=== PATIENT | female | born 1960 | race Caucasian/White ===

== ENCOUNTER 2016-08-07 12:33 | Inpatient (IN) | payer OTHER ==
[~2016-08-07] VITALS: Ht 154.9 cm; Wt 58.0 kg
[~2016-08-07 12:33] MED LIST: ADVAIR HFA120 INHALA IH; CEFDINIR300 MG PO; METHADONE10 MG/1 M1 PO; NICODERM CQ1 EAC1 TD; NICOTINE PATCH1 EAC2 TD; NORVIR100 MG PO; PREDNISONE10 MG PO; PROAIR HFA8.5 GM IH; REYATAZ300 MG PO; SPIRIVA1 INHALATI IH; TRUVADA1 TABLET PO; ZITHROMAX Z-PA250 MG PO
[2016-08-07 14:02] LABS: MCH 30.4 PG (29.0-34.0); MCHC 33.1 G/DL (30.0-36.0); MCV 92.1 FL (83-99); MEAN PLAT.VOLUME 9.9 uM^3 (9.5-12.4); PLATELET COUNT 112 K/uL (156-360); RBC DIS.WIDTH-CV 13.4 % (11.8-14.6); RBC DIS.WIDTH-SD 45.2 % (39-53); RED BLOOD COUNT 3.91 M/uL (3.80-5.20); WHITE BLOOD COUNT 11.1 K/uL (4.1-10.2)
[2016-08-07 14:15] LABS: CHLORIDE 104 mEq/L (99-109); POTASSIUM 4.1 mEq/L (3.7-5.4); SODIUM 136 mEq/L (136-147)
[2016-08-07 14:17] LABS: GLUCOSE 100 mg/dL (70-99)
[2016-08-07 14:18] LABS: ANION GAP 10 MEQ/L (2-14)
[2016-08-07 14:21] LABS: GFR ESTIMATE (CALCULATED) > 59 mL/min/
[2016-08-07 14:22] LABS: UREA NITROGEN (BUN) 13 mg/dL (9-23)
[2016-08-07 14:25] LABS: TROP-I INTERPRETATION NEGATIVE; TROPONIN-I < 0.01 ng/mL (0.0-0.30)
[2016-08-07 17:34] LABS: INFLUENZA A VIRAL ANTIGEN NEGATIVE; INFLUENZA B VIRAL ANTIGEN NEGATIVE
[2016-08-07 20:00] VITALS: BP 95/64
[2016-08-07 21:19] LABS: TROP-I INTERPRETATION NEGATIVE; TROPONIN-I < 0.01 ng/mL (0.0-0.30)
[2016-08-08] VITALS (8 sets, daily range): BP systolic 89–107; BP diastolic 50–59
[2016-08-08 03:27] LABS: TROP-I INTERPRETATION NEGATIVE; TROPONIN-I < 0.01 ng/mL (0.0-0.30)
[2016-08-08 10:09] LABS: HEMATOCRIT 36.5 % (36.0-46.0); MCH 30.4 PG (29.0-34.0); MCHC 32.6 G/DL (30.0-36.0); MCV 93.4 FL (83-99); MEAN PLAT.VOLUME 10.4 uM^3 (9.5-12.4); PLATELET COUNT 122 K/uL (156-360); RBC DIS.WIDTH-CV 13.7 % (11.8-14.6); RBC DIS.WIDTH-SD 46.3 % (39-53); RED BLOOD COUNT 3.91 M/uL (3.80-5.20); WHITE BLOOD COUNT 9.3 K/uL (4.1-10.2)
[2016-08-08 10:27] LABS: ANION GAP 11 MEQ/L (2-14); CHLORIDE 103 MEQ/L (99-109); GFR ESTIMATE (CALCULATED) > 59 mL/min/; GLUCOSE 128 mg/dL (70-99); POTASSIUM 3.9 MEQ/L (3.7-5.4); SAMPLE HEMOLYSIS CHECK 0; SAMPLE ICTERIC CHECK 0; SAMPLE LIPEMIA CHECK 0; SODIUM 137 MEQ/L (136-147); UREA NITROGEN (BUN) 14 mg/dL (9-23)
[2016-08-09 03:55] VITALS: BP 108/56
[2016-08-09 07:29] VITALS: BP 109/64
[2016-08-09 08:16] LABS: INTERNAL CONTROL VALID? YES
[2016-08-09] MEDS ORDERED: LEVAQUIN750 MG PO (11:40)
== END 2016-08-09 12:44 | disposition home or self-care (01) | DRG 190 ==
LOC: EME 12:33 → EDOF 15:37 → 5WEST 17:30
PROVIDERS: Emergency Medicine; Internal Medicine
DX: J44.0 Chronic obstructive pulmonary disease with (acute) lower respiratory infection (principal); J18.9 Pneumonia, unspecified organism; B20 Human immunodeficiency virus [HIV] disease; G40.909 Epilepsy, unspecified, not intractable, without status epilepticus; F17.210 Nicotine dependence, cigarettes, uncomplicated; Z23 Encounter for immunization; Z99.81 Dependence on supplemental oxygen; Z88.1 Allergy status to other antibiotic agents
CPT/HCPCS: 71020; 80048; 84484; 85027; 87040; 87449; 87502; 93005; 94640; 94640 76; 94799; 99202; 99281; 99285; G0378; J0456; J0696; J1200; J1650; J2920; J7030; J7050; J7512

== ENCOUNTER → 2016-08-18 | Outpatient (CLI) | payer OTHER ==
[~2016-08-18] MED LIST changes: +LEVAQUIN750 MG PO
== END | disposition home or self-care (01) ==
LOC: RES 08:00
DX: Z02.71 Encounter for disability determination (principal)
CPT/HCPCS: 94060; 94729; 94760

== ENCOUNTER 2017-07-06 11:21 | Inpatient (IN) | payer OTHER ==
[~2017-07-06] VITALS: Ht 152.4 cm; Wt 59.0 kg
[~2017-07-06 11:21] MED LIST changes: +DESCOVY 200-251 EACH PO; -TRUVADA1 TABLET PO
[2017-07-06 13:05] LABS: BASOPHIL (%) 0.6 % (0-1); BASOPHIL COUNT 0.1 K/uL (0-0.1); EOSINOPHIL (%) 2.2 % (0-5); EOSINOPHIL COUNT 0.2 K/uL (0-0.3); HEMATOCRIT 37.9 % (36.0-46.0); HEMOGLOBIN 12.8 G/DL (11.9-15.5); IMMATURE GRANULOCYTE (%) 1.5 % (0.0-0.7); LYMPHOCYTE (%) 13.4 % (15-42); LYMPHOCYTE COUNT 1.4 K/uL (1.0-2.8); MCH 31.4 PG (29.0-34.0); MCHC 33.8 G/DL (30.0-36.0); MCV 93.1 FL (83-99); MONOCYTE (%) 8.6 % (3-12); MONOCYTE COUNT 0.9 K/uL (0-0.8); NEUTROPHIL (%) 73.7 % (45-76); NEUTROPHIL COUNT 7.9 K/uL (1.8-6.4); RBC DIS.WIDTH-CV 13.3 % (11.8-14.6); RBC DIS.WIDTH-SD 45.4 % (39-53); RED BLOOD COUNT 4.07 M/uL (3.80-5.20); WHITE BLOOD COUNT 10.6 K/uL (4.1-10.2)
[2017-07-06 13:24] LABS: CHLORIDE 100 mEq/L (99-109); POTASSIUM 3.2 mEq/L (3.7-5.4); SODIUM 140 mEq/L (136-147)
[2017-07-06 13:26] LABS: GLUCOSE 82 mg/dL (70-99)
[2017-07-06 13:30] LABS: CREATININE 1.6 mg/dL (0.6-1.3); GFR ESTIMATE (CALCULATED) 35 mL/min/
[2017-07-06 13:31] LABS: UREA NITROGEN (BUN) 16 mg/dL (9-23)
[2017-07-06 13:45] LABS: PLAT.SUFFICIENCY ADEQUATE; PLATELET CLUMPS PRESENT - PLATELET COUNT APPEARS ADQ.; PLATELET COUNT UNABLE TO REPORT K/uL (156-360)
[2017-07-06 17:00] VITALS: BP 102/59
[2017-07-06 20:08] VITALS: BP 98/62
[2017-07-07] VITALS (7 sets, daily range): BP systolic 92–111; BP diastolic 52–61
[2017-07-07 06:14] LABS: HEMATOCRIT 34.9 % (36.0-46.0); HEMOGLOBIN 11.1 G/DL (11.9-15.5); MCH 29.5 PG (29.0-34.0); MCHC 31.8 G/DL (30.0-36.0); MCV 92.8 FL (83-99); PLATELET COUNT 238 K/uL (156-360); RBC DIS.WIDTH-CV 13.4 % (11.8-14.6); RBC DIS.WIDTH-SD 46.2 % (39-53); RED BLOOD COUNT 3.76 M/uL (3.80-5.20)
[2017-07-07 06:39] LABS: CHLORIDE 99 MEQ/L (99-109); GFR ESTIMATE (CALCULATED) > 59 mL/min/; POTASSIUM 3.3 MEQ/L (3.7-5.4); SODIUM 140 MEQ/L (136-147); UREA NITROGEN (BUN) 17 mg/dL (9-23)
[2017-07-07 06:43] LABS: GLUCOSE 165 mg/dL (70-99)
[2017-07-08 03:58] VITALS: BP 107/54
[2017-07-08 07:23] VITALS: BP 128/60
[2017-07-08 12:08] VITALS: BP 103/57
[2017-07-08 16:00] VITALS: BP 106/60
[2017-07-08 20:00] VITALS: BP 93/52
[2017-07-09] VITALS: BP 115/57
[2017-07-09 07:44] VITALS: BP 121/59
[2017-07-09 16:34] VITALS: BP 124/78
[2017-07-09 23:53] VITALS: BP 141/65
[2017-07-10 08:31] VITALS: BP 97/61
[2017-07-10 10:45] LABS: C DIFF TOXIN NEGATIVE (NEGATIVE)
[2017-07-10] MEDS ORDERED: PREDNISONE5 M1 PO (13:40)
[2017-07-10] MEDS ORDERED: LEVOFLOXACIN750 MG PO (13:42)
[2017-07-10] MEDS ORDERED: FAMOTIDINE20 MG PO (13:43)
== END 2017-07-10 15:09 | disposition home or self-care (01) | DRG 975 ==
LOC: EME 11:21 → 5SOUTH 14:10 → EDOF 14:10 → ENRESERV 14:11 → 5SOUTH 16:38
PROVIDERS: Emergency Medicine; Internal Medicine; Internal Medicine Infectious Disease; Student in an Organized Health Care Education/Training Program
DX: J18.9 Pneumonia, unspecified organism (principal); J44.0 Chronic obstructive pulmonary disease with (acute) lower respiratory infection; J44.1 Chronic obstructive pulmonary disease with (acute) exacerbation; B20 Human immunodeficiency virus [HIV] disease; N17.9 Acute kidney failure, unspecified; F17.210 Nicotine dependence, cigarettes, uncomplicated; Z99.81 Dependence on supplemental oxygen; Z88.1 Allergy status to other antibiotic agents
CPT/HCPCS: 71045; 80048; 85025; 85027; 87040; 87070; 87205; 87449; 87493; 87502; 87536; 94640; 94640 76; 94760; 94799; 99202; 99281; 99284; J0456; J0696; J1644; J2920; J2930